=== PATIENT | male | born 1995 | race Caucasian/White ===

== ENCOUNTER 2017-08-10 16:37 | Emergency (ER) | payer SELFPAY ==
[~2017-08-10] VITALS: Ht 177.8 cm; Wt 62.2 kg
[~2017-08-10 16:37] MED LIST: ALBU17AE25; LORA-407; [UNRECOGNIZED DRUG - CODE]
[2017-08-10 16:39] VITALS: Ht 177.8 cm; Wt 62.2 kg
[2017-08-10] MEDS ORDERED: ONDANSETRON (ODT) 4 MG TAB ODT STA (17:38)
[2017-08-10] MEDS ORDERED: FAMOTIDINE 20 MG TAB PO ONE (18:00)
[2017-08-10] MEDS ORDERED: LIDOCAINE/MYLANTA 40 ML BTL PO ONE (18:00)
[2017-08-10] MEDS ORDERED: ONDA4TAB14 PO (19:28)
[2017-08-10] MEDS ORDERED: FAMO-96 PO (19:36)
[2017-08-10 20:01] VITALS: BP 122/77; PULSE 93; RESP 20
--- NOTE | 2017-08-10 20:41 | ERD ---
ER Documentation Chief Complaint Date/Time DATE: 08/10/17 TIME: 20:35 Chief Complaint n/v x2 days HPI Patient is a 22-year-old male past medical history of gastritis who presents to the emergency department for concerns of nausea and vomiting 2 days. Patient reports feeling nauseous throughout the day. Patient states he had one episode of nonbloody nonbilious vomiting today. Patient does report some epigastric pain. Patient denies any radiation of the pain. Patient denies any fevers, chills, lower abdominal pain, diarrhea, dysuria, flank pain or LOC. Patient denies any chest pain or shortness of breath. Patient states approximately 1 month ago he took Prilosec for about 2 weeks. He states that he discontinued this medication after 2 weeks. She reports taking Prilosec approximately 1 month ago. He states he stopped the medication 2 weeks ago. Patient states he restarted it 2 days ago. Patient does report eating spicy foods daily. Of note , patient states he has a history of a hiatal hernia as a child however it improved. Patient denies following up with a GI specialist. ROS All systems reviewed and are negative except as per history of present illness. Medications Home Meds Active Scripts Famotidine* (Pepcid*) 20 Mg Tablet, 20 MG PO BID for 30 Days, TAB Prov:JOANNA DIALLO PA-C 08/10/17 Ondansetron (Ondansetron Odt) 4 Mg Tab.rapdis, 4 MG PO Q6H Y for NAUSEA AND/OR VOMITING, #10 TAB Prov:JOANNA DIALLO PA-C 08/10/17 Reported Medications Loratadine (Claritin) 10 Mg Tablet 12/01/09 Albuterol (Albuterol) 17 Gm Aerosol 12/01/09 Albuterol Sulfate (Albuterol Sulfate) 0.63 Mg/3 Ml Vial.neb 12/01/09 Allergies Allergies: Coded Allergies: No Known Allergies (Verified Allergy, Mild, 12/01/09) PMhx/Soc History of Surgery: No Hx Neurological Disorder: No Hx Respiratory Disorders: Yes (ASTHMA) Hx Cardiac Disorders: No Hx Miscellaneous Medical Probl: Yes (HERNIA) Hx Alcohol Use: No Hx Substance Use: No Hx Tobacco Use: No Smoking Status: Never smoker Physical Exam Vitals Vital Signs Date Time Temp Pulse Resp B/P Pulse Ox O2 Delivery O2 Flow Rate FiO2 08/10/17 20:01 93 20 122/77 99 Room Air 08/10/17 16:39 98.0 84 16 120/77 98 Physical Exam GENERAL: Well-developed, well-nourished male. Appears in no acute distress. Begin full sentences. HEAD: Normocephalic, atraumatic. EYES: Pupils are equally reactive bilaterally. EOMs grossly intact. No conjunctival erythema. ENT: Moist mucous membranes. No uvula deviation. No kissing tonsils. NECK: Supple. No meningismus. Normal range of motion of the neck. LUNG: Clear to auscultation bilaterally. No rhonchi, wheezing, rales or coarse breath sounds. HEART: Regular rate and rhythm. No murmurs, rubs or gallops. ABDOMEN:. Soft, and nondistended. Tender to palpation in the epigastric region. Positive bowel sounds in all four quadrants. No rebound tenderness, no guarding. (-) McBurney's point tenderness. No CVA tenderness. EXTREMITIES: Equal pulses bilaterally. No peripheral clubbing, cyanosis or edema. No unilateral leg swelling. NEUROLOGIC: Alert and oriented. Moving all four extremities without any difficulty. Normal speech. Steady gait. SKIN: Normal color. Warm and dry. No rashes or lesions. Results 24 hrs Current Medications Medications (Trade) Dose Ordered Sig/Neymar Route PRN Reason Start Time Stop Time Status Last Admin Dose Admin Famotidine (Pepcid) 20 mg ONCE ONCE PO 08/10/17 18:00 08/10/17 18:01 DC 08/10/17 17:56 Ondansetron HCl (Zofran Odt) 4 mg ONCE STAT ODT 08/10/17 17:38 08/10/17 17:41 DC 08/10/17 17:55 Miscellaneous Medication (Gi Cocktail (2)) 40 ml ONCE ONCE PO 08/10/17 18:00 08/10/17 18:01 DC 08/10/17 17:56 Procedures/MDM MEDICAL DECISION MAKING: This is a 22-year-old male who presents emergency department with concerns of epigastric pain with nausea and vomiting which started 2 days ago. Patient had one episode of nonbloody nonbilious vomiting. Patient does report eating spicy foods daily. Patient states he did discontinue taking Prilosec approximately 2 weeks ago and restarted it 2 days ago. Vital signs were reviewed. Patient is afebrile. Patient was given a Zofran, Pepcid, GI cocktail. Patient did report improvement in symptoms after receiving this medication. At this time, patient's presentation is most consistent with gastritis with associated nausea and vomiting.. I have a much lower clinical concern for acute coronary syndrome, AAA, mesenteric ischemia, lower lobe pneumonia, DKA, bowel perforation, bowel obstruction cholecystitis, choledocholithiasis, pancreatitis , diverticulitis, UTI, pyelonephritis, nephrolithiasis, appendicitis. Unable to rule out PUD or recurrence of hiatal hernia at this time. Patient was advised that he will need an endoscopy on an outpatient basis. GI referral information provided to the patient. Patient encouraged to follow-up with his primary care physician for referral as soon as possible. Dietary changes are advised. Medication compliance was discussed. PRESCRIPTIONS: Pepcid, Zofran DISCHARGE: At this time, patient is stable for discharge and outpatient management. I have instructed the patient to follow-up with his/her primary care physician in 1-2 days. I have instructed the patient to promptly return to the ER at any time for any new or worsening symptoms including increased pain, nausea, vomiting, diarrhea, fever, weakness or LOC. The patient and/or family expressed understanding of and agreement with this plan. All questions were answered. Home care instructions were provided. Disclaimer: Inadvertent spelling and grammatical errors are likely due to EHR/ dictation software use and do not reflect on the overall quality of patient care. Also, please note that the electronic time recorded on this note does not necessarily reflect the actual time of the patient encounter. Departure Diagnosis: Primary Impression: Gastritis Gastritis type: unspecified gastritis Chronicity: unspecified Gastritis bleeding: presence of bleeding unspecified Qualified Code: K29.70 - Gastritis , presence of bleeding unspecified, unspecified chronicity, unspecified gastritis type Additional Impression: Nausea and vomiting Vomiting type: unspecified Vomiting Intractability: unspecified Qualified Code: R11.2 - Nausea and vomiting, intractability of vomiting not specified, unspecified vomiting type Condition: Stable Patient Instructions: Nausea and Vomiting-Adult Referrals: CHRISTEL DEE MD, RAHUL K. CHITAYAT, RON DANESHGAR, SHAHRAM MD EPHRAIM,JAC WAGNER MD, PIYUSH K MD KASHER, JOHN MD Additional Instructions: Call your primary care doctor TOMORROW for an appointment during the next 1-2 days.See the doctor sooner or return here if your condition worsens before your appointment time. Follow up with a GI specialist in the next few days. Referral information provided. JOANNA DIALLO PA-C Aug 10, 2017 20:41
== END 2017-08-10 20:01 | disposition home or self-care (01) ==
LOC: FTE 16:37
DX: K29.70 Gastritis, unspecified, without bleeding (principal); J45.909 Unspecified asthma, uncomplicated
CPT/HCPCS: 99283